=== PATIENT | female | born 1960 | race Caucasian/White ===

== ENCOUNTER 2020-10-03 02:36 | Emergency (ER) | payer OTHER ==
[~2020-10-03] VITALS: Ht 157.5 cm; Wt 59.0 kg
--- OUTSIDE RECORDS SUMMARY | 2020-10-03 02:40 | XMS ---
PreManage Notification: ALEXI MACHUCA Security Child Neurologist Events No recent Security Events currently on file CRITERIA MET - [facility] - 2 Visits in 30 Days CARE PROVIDERS There are no care providers on record at this time. Albert has no Care Guidelines for this patient. David VISIT COUNT (12 MO.) [address] [place] TOTAL 5 NOTE: Visits indicate total known visits. ED/C VISIT TRACKING (12 MO.) [facility] COMPLAINT: - ALTERED LOC [facility]2020 14[facility] DIAGNOSES: - Multiple sclerosis - Other specified anxiety disorders - Neurologic Problem - Type 2 diabetes mellitus without complications - Anesthesia of skin - Other symptoms and signs involving the musculoskeletal system - Weakness 07/04/2020 23:40 [facility] [place] [place] TYPE: Emergency DIAGNOSES: - Altered mental status, unspecified - STOMACH PAIN - Multiple sclerosis 03/10/2020 23:07 [facility] [place] [facility] TYPE: Emergency DIAGNOSES: - Contact with and (suspected) exposure to other viral communicable diseases - COVID TESTING 11/16/2019 19:47 [facility] TYPE: Emergency DIAGNOSES: - POSS UTI - Left lower quadrant pain INPATIENT VISIT TRACKING (12 MO.) [facility] DIAGNOSES: - Anesthesia of skin - Weakness - Type 2 diabetes mellitus without complications - Multiple sclerosis - Other specified anxiety disorders - Other symptoms and signs involving the musculoskeletal system 07/05/2020 08:12 [facility] DIAGNOSES: - Multiple sclerosis - Metabolic encephalopathy - Anxiety disorder, unspecified - Personal history of transient ischemic attack (TIA), and cerebral infarction without residual deficits - AMS - Disorientation, unspecified [email or web address]
[2020-10-03] MEDS ORDERED: SUCRALFATE1 GM PO (03:04)
[2020-10-03] MEDS ORDERED: BACLOFEN10 MG PO (03:04)
[2020-10-03] MEDS ORDERED: TRAZODONE HCL50 MG PO (03:04)
[2020-10-03] MEDS ORDERED: AMITRIPTYLINE H10 MG PO (03:04)
--- NOTE | 2020-10-03 21:09 | EKG ---
[facility] [address] [facility] [place], [place] [address] Signed Normal sinus rhythm Normal ECG No previous ECGs available Confirmed by CONCEPCION BRANCH DO ([id number]) on 10/03/2020 9:09:42 PM Electronically Signed By: CONCEPCION BRANCH DO 10/03/202108 PATIENT NAME: MACHUCAALEXI Electrocardiogram DATE OF : 62 PHYSICIAN: CONCEPCION BRANCH DO REPORT #: [id number] REPORT IS CONFIDENTIAL AND NOT TO BE RELEASED WITHOUT AUTHORIZATION
== END 2020-10-03 05:14 | disposition home or self-care (01) ==
LOC: ED 02:36
DX: R41.82 Altered mental status, unspecified (principal); G35 Multiple sclerosis
CPT/HCPCS: 51701; 70450; 80053; 85025; 93005; 93010; 99285-25